=== PATIENT | female | born 1970 | race Caucasian/White ===

== ENCOUNTER → 2019-10-05 | Outpatient (CLI) | payer BC | LOC: LAB 09:11 | PROVIDERS: ATTEND Internal Medicine Cardiovascular Disease | DX: Z03.818 Encounter for observation for suspected exposure to other biological agents ruled out (principal) ==

== ENCOUNTER → 2019-11-04 | Outpatient (CLI) | payer OTHER | LOC: CAT 08:14 | DX: Z13.6 Encounter for screening for cardiovascular disorders (principal); I25.10 Atherosclerotic heart disease of native coronary artery without angina pectoris; E78.00 Pure hypercholesterolemia, unspecified ==

== ENCOUNTER → 2021-01-14 | Outpatient (CLI) | payer BC | LOC: RAD 10:46 | PROVIDERS: ATTEND Internal Medicine | DX: R06.00 Dyspnea, unspecified (principal) ==

== ENCOUNTER → 2021-03-28 | Outpatient (CLI) | payer BC ==
[~2021-03-28] MED LIST: ESTRACE0.5 MG PO; HYDROCODON-ACE1 EAC7 PO; TOPAMAX100 MG PO; ZOFRAN ODT4 MG PO
== END ==
LOC: PUL 10:16
PROVIDERS: ATTEND Internal Medicine
DX: U07.1 COVID-19 (principal); R06.00 Dyspnea, unspecified; R06.02 Shortness of breath